=== PATIENT | female | born 1970 | race American Indian/Alaskan Native ===

== ENCOUNTER 2016-12-17 18:14 | Emergency (ER) | payer MEDICAID ==
[2016-12-17 18:27] VITALS: BP 118/83
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
== END 2016-12-17 20:23 | disposition home or self-care (01) ==
LOC: ED 18:14
DX: B86 Scabies (principal); K21.9 Gastro-esophageal reflux disease without esophagitis; Z87.891 Personal history of nicotine dependence
CPT/HCPCS: 99282

== ENCOUNTER 2016-12-20 08:45 | Emergency (ER) | payer MEDICAID ==
--- NOTE | 2016-12-20 09:29 | XRay Report ---
LEFT FOOT, 3 views: History: Left foot pain, injury. Minimally displaced fracture through the proximal shaft of the third metatarsal is identified. No calcified callus is appreciated. Displacement measures 1-2 mm at the fracture site. The remaining bony structures are intact. No erosive joint pathology or significant degenerative changes. Soft tissue swelling. IMPRESSION: Traumatic fracture, third metatarsal.
[2016-12-20] MEDS ORDERED: ROXICODONE PO ONE (11:15)
[2016-12-20] MEDS ORDERED: TORADOL IV ONE (11:15)
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
[2016-12-20 11:50] VITALS: BP 118/66
== END 2016-12-20 11:50 | disposition home or self-care (01) ==
LOC: ED 08:45
DX: M79.672 Pain in left foot (principal); K21.9 Gastro-esophageal reflux disease without esophagitis; J45.909 Unspecified asthma, uncomplicated; G89.29 Other chronic pain; Z90.81 Acquired absence of spleen; Z87.891 Personal history of nicotine dependence; Z88.8 Allergy status to other drugs, medicaments and biological substances
CPT/HCPCS: 73620; 96374; 99284; J1885

== ENCOUNTER 2016-12-24 16:51 | Emergency (ER) | payer MEDICAID ==
--- NOTE | 2016-12-24 17:41 | XRay Report ---
FINAL REPORT PROCEDURE: XR ANKLE 3 LT TECHNIQUE: Left ankle radiographs, AP, lateral, and oblique views. CPT 20877 HISTORY: LT ANKLE PAIN SWELLING S/P FALL COMPARISON: No prior studies are available for comparison. FINDINGS: Soft tissue swelling visualized anterior aspect of the foot. There is a minimally displaced fracture visualized through the proximal end of the 3rd metatarsal. There may also be a fracture through the proximal end of the 2nd metatarsal. No fractures of the ankle are visualized. Ankle mortise and talar dome are intact. Bone density appears normal. IMPRESSION: Mildly displaced fracture proximal end 3rd metatarsal. I cannot exclude a fracture through the proximal end of the 2nd metatarsal. Recommend plain films of the foot for further evaluation. No evidence of ankle fracture or dislocation.
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
[2016-12-24 20:55] VITALS: BP 120/86
== END 2016-12-24 20:55 | disposition home or self-care (01) ==
LOC: ED 16:51
DX: M79.672 Pain in left foot (principal); M25.572 Pain in left ankle and joints of left foot; K21.9 Gastro-esophageal reflux disease without esophagitis; G89.29 Other chronic pain; J45.909 Unspecified asthma, uncomplicated; Z79.82 Long term (current) use of aspirin; W01.0XXA Fall on same level from slipping, tripping and stumbling without subsequent striking against object, initial encounter; Y93.89 Activity, other specified; Y99.8 Other external cause status; Y92.89 Other specified places as the place of occurrence of the external cause
CPT/HCPCS: 99283

== ENCOUNTER 2017-02-28 12:25 | Emergency (ER) | payer MEDICAID | END 2017-02-28 13:47 | disposition left against medical advice (07) | LOC: ED 12:25 | DX: R07.9 Chest pain, unspecified (principal); R05 Cough; Z53.21 Procedure and treatment not carried out due to patient leaving prior to being seen by health care provider ==